=== PATIENT | male | born 1935 | race Caucasian/White ===

== ENCOUNTER 2017-05-15 23:39 | Observation (INO) | payer OTHER, BC ==
[~2017-05-15] VITALS: Ht 172.7 cm; Wt 82.5 kg
[2017-05-16] MEDS ORDERED: ASPIRIN 324 MG CHEW PO STA (00:03)
--- NOTE | 2017-05-16 00:04 | EMERGENCY ROOM VISIT NOTE ---
History Report prepared by Rajesh: Robert Jefferson Under the Supervision of: Dr. Cory Chi M.D. First contact with patient: 23:54 Chief Complaint: CHEST PAIN Stated Complaint: CHEST PAIN History of Present Illness The patient is an 82 year old male with a history of atrial fibrillation who presents to the Emergency Room with complaints of an episode of left-sided chest pain that occurred around an hour ago. He says that he was at the [facility] football game, and got excited and had around 15 to 20 minutes of dull left- sided chest pain. He says that the pain is now gone. The patient notes that his heart was racing and he felt weak during the episode. The patient has a history of a bypass and stent placement, and was last hospitalized for atrial fibrillation 2 years ago. He notes no history of heart attacks. He had a pacemaker placed 10 years ago. The patient says that his last chest pain episode before this one was "months ago". He states that he has not taken any medications for the pain today. He denies any loss of consciousness, shortness of breath, nausea, vomiting, abdominal pain, leg swelling, or leg pain. He takes Eliquis and Aspirin daily. He says that he was not drinking alcohol today. Source of History: patient, family Onset: Around an hour ago Position: chest (left) Quality: dull Timing: other (episode) Associated Symptoms: + weakness, No LOC, No SOB, No nausea, No vomiting, No abdominal pain Note: Associated symptoms: Heart was racing. Denies leg swelling or leg pain. Review of Systems See HPI for pertinent positives & negatives. A total of 10 systems reviewed and were otherwise negative. Past Medical & Surgical Medical Problems: (1) Afib (2) Pacemaker (3) Palpitations Family History Family history omitted secondary to patient's advanced age. Social History Smoking Status: Never Smoker Marital Status: Housing Status: lives with family Occupation Status: retired Current/Historical Medications Scheduled Apixaban (Eliquis), 5 MG PO BID Aspirin (Dameon Aspirin Ec Low Dose), 81 MG PO DAILY Carboxymethylcellulose Sodium (Refresh), 1 DROP OPB QPM Cholecalciferol (Vitamin D3), 2,000 UNITS PO DAILY Guaifenesin/Codeine (Robitussin-Ac Syrup), 10 ML PO QPM Rosuvastatin Calcium (Crestor), 5 MG PO DAILY Allergies Coded Allergies: No Known Allergies (Unverified , 05/16/17) Physical Exam Vital Signs Date Time Temp Pulse Resp B/P (MAP) Pulse Ox O2 Delivery O2 Flow Rate FiO2 05/16/17 02:39 82 18 05/16/17 02:09 79 19 05/16/17 01:09 73 17 126/80 05/16/17 00:39 73 20 126/80 96 Room Air 05/16/17 00:39 74 20 97 05/16/17 00:33 97 Room Air 05/16/17 00:31 126/80 05/16/17 00:09 74 16 05/16/17 00:00 81 05/15/17 23:42 36.6 63 20 138/82 97 Room Air Physical Exam GENERAL: Patient is elderly appearing and in no acute distress. HEENT: No acute trauma, normocephalic atraumatic, mucous membranes moist, no nasal congestion, no scleral icterus. NECK: No stridor, no adenopathy, no meningismus, trachea is midline. LUNGS: No dyspnea. Clear to auscultation and equal bilaterally. No wheeze, no rhonchi. CHEST: Pacemaker in left upper chest. HEART: Regular rate and rhythm. No murmurs, rubs, gallops appreciated. ABDOMEN: Soft, nontender, bowel sounds positive, no masses appreciated, no peritonitis. BACK: No midline tenderness, no CVA tenderness EXTREMITIES: Normal motion all extremities, no cyanosis, no edema. NEUROLOGIC: Alert and oriented, no acute motor or sensory deficits, no focal weakness, cranial nerves grossly intact. SKIN: No rash, no jaundice, no diaphoresis. Medical Decision & Procedures ER Provider Diagnostic Interpretation: X ray results are stated below per my interpretation and the radiologist's interpretation. 1-view chest x-ray: poor inspiratory effort, mildly enlarged heart, sternal wires, no infiltrate, no pneumothorax. Laboratory Results 05/15/17 23:55 Red Blood Count 4.50, Mean Corpuscular Volume 95.3, Mean Corpuscular Hemoglobin 32.0, Mean Corpuscular Hemoglobin Concent 33.6, Mean Platelet Volume 10.3, Neutrophils (%) (Auto) 58.4, Lymphocytes (%) (Auto) 26.0, Monocytes (%) (Auto) 13.6, Eosinophils (%) (Auto) 1.3, Basophils (%) (Auto) 0.5, Neutrophils # (Auto ) 4.85, Lymphocytes # (Auto) 2.16, Monocytes # (Auto) 1.13, Eosinophils # (Auto ) 0.11, Basophils # (Auto) 0.04 05/15/17 23:55 Test 05/15/17 23:55 White Blood Count 8.31 K/uL (4.8-10.8) Red Blood Count 4.50 M/uL (4.7-6.1) Hemoglobin 14.4 g/dL (14.0-18.0) Hematocrit 42.9 % (42-52) Mean Corpuscular Volume 95.3 fL (80-100) Mean Corpuscular Hemoglobin 32.0 pg (25-34) Mean Corpuscular Hemoglobin Concent 33.6 g/dl (32-36) Platelet Count 144 K/uL (130-400) Mean Platelet Volume 10.3 fL (7.4-10.4) Neutrophils (%) (Auto) 58.4 % Lymphocytes (%) (Auto) 26.0 % Monocytes (%) (Auto) 13.6 % Eosinophils (%) (Auto) 1.3 % Basophils (%) (Auto) 0.5 % Neutrophils # (Auto) 4.85 K/uL (1.4-6.5) Lymphocytes # (Auto) 2.16 K/uL (1.2-3.4) Monocytes # (Auto) 1.13 K/uL (0.11-0.59) Eosinophils # (Auto) 0.11 K/uL (0-0.5) Basophils # (Auto) 0.04 K/uL (0-0.2) RDW Standard Deviation 45.5 fL (36.4-46.3) RDW Coefficient of Variation 13.1 % (11.5-14.5) Immature Granulocyte % (Auto) 0.2 % Immature Granulocyte # (Auto) 0.02 K/uL (0.00-0.02) Anion Gap 5.0 mmol/L (3-11) Est Creatinine Clear Calc Drug Dose 54.1 ml/min Estimated GFR () 80.3 Estimated GFR (Non- 69.3 BUN/Creatinine Ratio 27.5 (10-20) Calcium Level 8.5 mg/dl (8.5-10.1) Magnesium Level 2.2 mg/dl (1.8-2.4) Total Creatine Kinase 61 U/L (39-308) Creatine Kinase MB 1.6 ng/ml (0.5-3.6) Creatine Kinase MB Ratio 2.6 (0-3.0) Troponin I 0.017 ng/ml (0-0.045) Laboratory results as reviewed by me. Medications Administered Medications (Trade) Dose Ordered Sig/Juliet Route Start Time Stop Time Status Last Admin Dose Admin Aspirin (Aspirin Chew) 324 mg NOW STAT PO 05/16/17 00:03 05/16/17 00:04 DC 05/16/17 00:32 324 MG Sodium Chloride 500 ml @ 999 mls/hr Q31M STAT IV 05/16/17 01:29 05/16/17 01:59 DC 05/16/17 01:29 999 MLS/HR ECG Indication: chest pain Rate (beats per minute): 82 Rhythm: other (paced rhythm) Findings: no acute ischemic change, no ectopy, other (QTC of 530) ED Course 2352: The patient was evaluated in room C10. A complete history and physical exam was performed. 0003: Ordered Aspirin Chew 324 mg PO. 0125: I reevaluated the patient and he has no further chest pain. The patient verbally expressed understanding and agreement of the treatment plan. The patient will be evaluated for further treatment. 0128: I discussed the patient with Dr. Mckee - [facility] excellence coach - he will evaluate the patient for further treatment. 0129: Ordered NSS 500 ml @ 999 mls/hr IV. Medical Decision Differential: Cardiac Ischemia (STEMI, NSTEMI, Unstable Angina, etc), Aortic Dissection, Arrhythmia, Pulmonary Embolism, Pneumonia, Pneumothorax, MSK, Infectious, Pericarditis/Myocarditis, Esophageal Rupture, Gastrointestinal, amongst other pathologies entertained. 82 yr old male arrives from football game after developed left chest pressure in setting of exertion and noted palpitations. Resolved here. EKG looks OK and trop negative. CXR clear. Suspect some dehydration with mild bun elevation. Otherwise work-up benign. Will need to come in for cardiac rule out. Already on Eliquis. Given Full dose ASA for cardioprotective. Medication Reconcilliation Current Medication List: was personally reviewed by me Blood Pressure Screening Patient's blood pressure: Elevated blood pressure Monitored by hospitalist. Consults Time Called: 012 Consulting Physician: Dr. Rylee NEVES excellence coach Returned Call: 0128 (in person) I discussed the patient with Dr. Rylee NEVES excellence coach - he will evaluate the patient for further treatment. Impression Primary Impression: Left sided chest pain Additional Impression: Dehydration Scribe Attestation The scribe's documentation has been prepared under my direction and personally reviewed by me in its entirety. I confirm that the note above accurately reflects all work, treatment, procedures, and medical decision making performed by me. Departure Information Dispostion Being Evaluated By Hospitalist Referrals No Doctor, Assigned (PCP) Patient Instructions [facility] Problem Qualifiers
[2017-05-16] MEDS ORDERED: APIX1TAB3 PO (00:18)
[2017-05-16] MEDS ORDERED: ROSU5TAB PO (00:19)
[2017-05-16] MEDS ORDERED: CHOL2000 PO (00:20)
[2017-05-16] MEDS ORDERED: CARB1SOL OPB (00:21)
[2017-05-16] MEDS ORDERED: ASPI1TAB2 PO (00:22)
[2017-05-16] MEDS ORDERED: GUAISYP4 PO (00:23)
[2017-05-16 00:47] LABS: BASO % 0.5 %; BASO ABS # 0.04 K/uL (0-0.2); EOS % 1.3 %; HEMATOCRIT 42.9 % (42-52); IG% 0.2 %; LYMPH ABS # 2.16 K/uL (1.2-3.4); MEAN CELL VOLUME 95.3 fL (80-100); MEAN CORPUSCULAR HGB CONC 33.6 g/dl (32-36); MEAN PLATELET VOLUME 10.3 fL (7.4-10.4); MONO % 13.6 %; NEUT % 58.4 %; PLATELET COUNT 144 K/uL (130-400); WHITE BLOOD COUNT 8.31 K/uL (4.8-10.8)
[2017-05-16 00:48] LABS: COMPLETE YES
[2017-05-16 01:02] LABS: BUN/CREATININE RATIO 27.5 (10-20); CALCIUM 8.5 mg/dl (8.5-10.1); MAGNESIUM 2.2 mg/dl (1.8-2.4)
[2017-05-16 01:07] LABS: CKMB/CK RATIO 2.6 (0-3.0)
[2017-05-16] MEDS ORDERED: SODIUM CHLORIDE 0.9% 500ML 500 ML IV STA (01:29)
[2017-05-16] MEDS ORDERED: MoRPHine SULFATE 2 MG/ML CARP IV PRN (03:00)
[2017-05-16] MEDS ORDERED: POLYETHYLENE (MIRALAX) 17 GM PACK PO PRN (03:00)
[2017-05-16] MEDS ORDERED: MAGNESIUM HYDROXIDE SUSP 30 ML UDC PO PRN (03:00)
[2017-05-16] MEDS ORDERED: ALUMINUM/MAGNESIUM/SIMETH (MAALOX MAX) 30 ML UDC PO PRN (03:00)
[2017-05-16] MEDS ORDERED: ACETAMINOPHEN 325 MG TAB PO PRN (03:00)
[2017-05-16] MEDS ORDERED: ONDANSETRON INJ 2 MG/ML 2 ML VIAL IV PRN (03:00)
[2017-05-16] MEDS ORDERED: NITROGLYCERIN 0.4 MG SL PER TAB CHARGE SL PRN (03:00)
--- NOTE | 2017-05-16 03:07 | History and Physical ---
History & Physical Date & Time of Service: May 16, 2017 at 02:56 Chief Complaint: Chest Pain Primary Care Physician: No Doctor, Assigned History of Present Illness Source: patient 82 year old male with a PMH of atrial fibrillation, stent placement and a pacemaker that presented with a feeling of fluttering in his chest, which was associated with some central chest discomfort It started during the 4th quarter of the [employer] game which he was attending. The fluttering in his chest would last for 20-30 seconds and occurred 4-5 times over a span of 15 minutes at which point he left the game and was brought to the hospital by his for further assessment. By the time he reached the ED he was no longer having chest pain. The patient denied having any numbness or tingling down his arm or into his neck. He did not have any light headedness, pre-syncope, shortness of breath or dizziness. In the ED he had a CXR which did not show any acute abnormalities. His EKG was unable to be assessed as he has a pacemaker placed. His troponin in the ED was 0.17. He received a 325mg dose of aspirin in the ED. He was admitted to the floors for observation Past Medical/Surgical History Medical Problems: (1) Afib Status: Resolved (2) Pacemaker Status: Chronic 3) CAD - cath/stent Family History No FH of HI or Afib Social History Smoking Status: Former Smoker Drug Use: none Marital Status: Occupational Status: retired Allergies Coded Allergies: No Known Allergies (Unverified , 05/16/17) Home Medications Scheduled Apixaban (Eliquis), 5 MG PO BID Aspirin (Dameon Aspirin Ec Low Dose), 81 MG PO DAILY Carboxymethylcellulose Sodium (Refresh), 1 DROP OPB QPM Cholecalciferol (Vitamin D3), 2,000 UNITS PO DAILY Guaifenesin/Codeine (Robitussin-Ac Syrup), 10 ML PO QPM Rosuvastatin Calcium (Crestor), 5 MG PO DAILY Review of Systems Constitutional: No fever, No chills, No sweats Respiratory: No cough, No sputum, No wheezing, No shortness of breath Cardiovascular: + chest pain, + palpitations, No edema Abdomen: No pain, No nausea, No vomiting, No diarrhea, No constipation Musculoskeletal: No joint pain, No muscle pain, No swelling, No calf pain Physical Exam Vital Signs Date Time Temp Pulse Resp B/P (MAP) Pulse Ox O2 Delivery O2 Flow Rate FiO2 05/16/17 00:39 73 20 126/80 96 Room Air 05/16/17 00:33 97 Room Air 05/16/17 00:00 81 05/15/17 23:42 36.6 63 20 138/82 97 Room Air General Appearance: WD/WN, no apparent distress ENT: hearing grossly normal, pharynx normal Neck: no JVD, no carotid bruits, trachea midline Respiratory/Chest: lungs clear, no respiratory distress, no accessory muscle use Cardiovascular: no edema, normal peripheral pulses, + systolic murmur (at the RUSB), + irregularly irregular Abdomen/GI: normal bowel sounds, non tender, soft Extremities/Musculoskelatal: no calf tenderness, no pedal edema, normal range of motion Neurologic/Psych: alert, normal mood/affect, oriented x 3 Skin: normal color, warm/dry, no rash Diagnostics Laboratory Results Results Past 24 Hours Test 05/15/17 23:55 Range/Units White Blood Count 8.31 4.8-10.8 K/uL Red Blood Count 4.50 4.7-6.1 M/uL Hemoglobin 14.4 14.0-18.0 g/dL Hematocrit 42.9 42-52 % Mean Corpuscular Volume 95.3 80-100 fL Mean Corpuscular Hemoglobin 32.0 25-34 pg Mean Corpuscular Hemoglobin Concent 33.6 32-36 g/dl Platelet Count 144 130-400 K/uL Mean Platelet Volume 10.3 7.4-10.4 fL Neutrophils (%) (Auto) 58.4 % Lymphocytes (%) (Auto) 26.0 % Monocytes (%) (Auto) 13.6 % Eosinophils (%) (Auto) 1.3 % Basophils (%) (Auto) 0.5 % Neutrophils # (Auto) 4.85 1.4-6.5 K/uL Lymphocytes # (Auto) 2.16 1.2-3.4 K/uL Monocytes # (Auto) 1.13 0.11-0.59 K/uL Eosinophils # (Auto) 0.11 0-0.5 K/uL Basophils # (Auto) 0.04 0-0.2 K/uL RDW Standard Deviation 45.5 36.4-46.3 fL RDW Coefficient of Variation 13.1 11.5-14.5 % Immature Granulocyte % (Auto) 0.2 % Immature Granulocyte # (Auto) 0.02 0.00-0.02 K/uL Sodium Level 139 136-145 mmol/L Potassium Level 4.0 3.5-5.1 mmol/L Chloride Level 106 98-107 mmol/L Carbon Dioxide Level 28 21-32 mmol/L Anion Gap 5.0 3-11 mmol/L Blood Urea Nitrogen 27 7-18 mg/dl Creatinine 1.00 0.60-1.40 mg/dl Est Creatinine Clear Calc Drug Dose 54.1 ml/min Estimated GFR () 80.3 Estimated GFR (Non- 69.3 BUN/Creatinine Ratio 27.5 10-20 Random Glucose 100 70-99 mg/dl Calcium Level 8.5 8.5-10.1 mg/dl Magnesium Level 2.2 1.8-2.4 mg/dl Total Creatine Kinase 61 39-308 U/L Creatine Kinase MB 1.6 0.5-3.6 ng/ml Creatine Kinase MB Ratio 2.6 0-3.0 Troponin I 0.017 0-0.045 ng/ml CXR normal other (unable to interpret) Impression Assessment and Plan 82 year old male with PMH of afib, s/p pacemaker and s/p stent that presented with fluttering in his chest and chest discomfort Chest discomfort and fluttering - Serial troponins - Admit to telemetry - ASA in the AM - Continue crestor and eliquis DVT prophylaxis - Abad Murillo Resident Physician Supervision Note: I was present with Dr. Mccartney during the history and exam. I discussed the case with the resident and agree with the findings and plan as documented in the note. Any exceptions or clarifications are listed here: 82 y/o M CAD, AF, pacer - visiting from [place] for football game - developed L CP and feeling of fluttering in chest lasting approx 15 min OE AAO x 2 S1,2 R CTAB NT, ND, BS+ No CCE P: Pts EKG is paced and nondiagnostic - trop is marginal - we will monitor on telemetry and obtain serial troponins If + would need to determine of this was due to prolonged fib and a demand mismatch or due to CAD He did have a brief episode of tachycardia - lasting a few seconds - while I was in the room. He did not notice this - there were no concomitant symptoms. Above discussed with pt , resident , ER attending Documented By: Edgardo Mckee VTE Prophylaxis VTE Risk Assessment Done? Y/N: Yes Risk Level: Low
[2017-05-16 03:58] VITALS: BP 156/95; PULSE 72; TEMP 36.3; O2SAT 99; Ht 172.7 cm; Wt 82.5 kg
--- NOTE | 2017-05-16 06:02 | DIAGNOSTIC IMAGING REPORT ---
CHEST ONE VIEW PORTABLE CLINICAL HISTORY: 82 years-old Male presenting with Chest Pain and discomfort. TECHNIQUE: Portable upright AP view of the chest was obtained. COMPARISON: None. FINDINGS: Left-sided pacer with leads to the right atrium and right ventricular apex. Median sternotomy wires with multiple wires. Atherosclerosis of the aortic arch. Cardiac silhouette normal in size allowing for mildly low lung volumes. Elevation of the left hemidiaphragm with minimal left basilar opacity. No large effusion or pneumothorax. Right lung and pleural space clear. Irregularity of the right humeral neck. Upper abdomen normal. IMPRESSION: 1. Elevation of the left hemidiaphragm with suspected minimal left basilar atelectasis. 2. Irregularity of the right humeral neck. Age-indeterminate fracture cannot be excluded. Electronically signed by: Christian Kirby M.D. 05/16/2017 6:01 AM Dictated Date/Time: 05/16/2017 5:58 AM
[2017-05-16 08:00] VITALS: O2SAT 99
[2017-05-16] MEDS ORDERED: PNEUMOCOCCAL POLYSACCHARIDES 25 MCG/0.5 ML VIAL/SYR IM. ONE (08:00)
[2017-05-16] MEDS ORDERED: PNEUMOCOCCAL ADMINISTRATION CHARGE ONE (08:00)
[2017-05-16 08:02] VITALS: BP 139/82; PULSE 83; TEMP 36.5; O2SAT 98
--- NOTE | 2017-05-16 08:30 | Family Medicine Progress Note ---
Progress Note Date of Service May 16, 2017. Subjective SEE DISCHARGE NOTE Objective Vital Signs Date Time Temp Pulse Resp B/P (MAP) Pulse Ox O2 Delivery O2 Flow Rate FiO2 05/16/17 08:02 36.5 83 20 139/82 (101) 98 05/16/17 04:00 Room Air 05/16/17 03:58 36.3 72 16 156/95 99 Room Air 05/16/17 03:17 75 18 160/78 96 Room Air 05/16/17 02:39 82 18 05/16/17 02:09 79 19 05/16/17 01:09 73 17 126/80 05/16/17 00:39 73 20 126/80 96 Room Air 05/16/17 00:39 74 20 97 05/16/17 00:33 97 Room Air 05/16/17 00:31 126/80 05/16/17 00:09 74 16 05/16/17 00:00 81 05/15/17 23:42 36.6 63 20 138/82 97 Room Air Assessment and Plan 82 year old male with PMH of afib, s/p pacemaker and s/p stent that presented with fluttering in his chest and chest discomfort Chest discomfort and fluttering - Serial troponins - Admit to telemetry - ASA in the AM A.fib - Continue Eloquis HLD - Continue Crestor DVT prophylaxis - Abad Murillo Resident Tracking Resident Involvement: Resident Care Provided Care Provided: Adult Hospital Medicine History Resident Physician Supervision Note: I was present with Dr. Sanchez during the history and exam. I discussed the case with the resident and agree with the findings and plan as documented in the note. Any exceptions or clarifications are listed here. Pt seen and examined at bedside. No acute events since admission. Chest pain resolved prior to presentation at [facility] and has not recurred. No history of same. May have been heartburn (patient was eating atypical foods at [employer] game). Reports no lightheadedness, palpitations, SOB, nausea, diaphoresis, sensory changes. General Appearance: WD/WN, no apparent distress Respiratory: chest non-tender, lungs clear, normal breath sounds, no respiratory distress Cardiovascular: normal peripheral pulses, regular rate, rhythm, no edema, no murmur Gastrointestinal: normal bowel sounds, non tender, soft, no organomegaly Assessment/Plan 82 y/o male h/o atrial fibrillation and implanted pacemaker presents with episode of chest pain Chest pain - troponins negative x 3, asymptomatic - continue ASA, statin, eliquis. Nitro PRN provided. Discharge to close outpatient follow up Atrial fibrillation - continue eliquis
[2017-05-16] MEDS ORDERED: APIXABAN 2.5 MG TAB PO SCH (09:00)
[2017-05-16] MEDS ORDERED: ASPIRIN 81 MG ECTAB PO SCH (09:00)
[2017-05-16] MEDS ORDERED: ROSUVASTATIN CALCIUM 10 MG TAB PO SCH (09:00)
[2017-05-16 09:50] LABS: CKMB/CK RATIO 3.1 (0-3.0)
[2017-05-16 12:00] VITALS: BP 134/82; PULSE 75; TEMP 36.8; O2SAT 96; O2SAT 99
[2017-05-16] MEDS ORDERED: NTRSLP4 SL ×2 (12:45→13:47)
--- NOTE | 2017-05-16 13:48 | Discharge Instructions ---
Discharge Instructions Date of Service May 16, 2017. Admission Reason for Admission: Palpitations Discharge Discharge Diagnosis / Problem: Chest pain Discharge Goals Goal(s): Decrease discomfort, Diagnostic testing Activity Recommendations Activity Limitations: resume your previous activity . Instructions / Follow-Up Instructions / Follow-Up You were seen in hospital to assess for an episode of chest discomfort. Since coming to hospital, you have been asymptomatic and three sets of troponin (protein leaked when there is damage to heart muscle) have been negative. It is advisable that upon discharge, you continue all your home medications and follow up with your winterizer in the next week. Additionally, nitro tablets have been prescribed to you for use in future possible episodes of chest pain. Thank you for allowing us to participate in your care. Current Hospital Diet Patient's current hospital diet: Regular Diet Discharge Diet Recommended Diet: AHA Diet (Heart Healthy) Pending Studies Studies pending at discharge: no Medical Emergencies . Who to Call and When: Medical Emergencies: If at any time you feel your situation is an emergency, please call 911 immediately. . Non-Emergent Contact Non-Emergency issues call your: Primary Care Provider, Safekeeping Clerk . . "Provider Documentation" section prepared by Julissa Sanchez. . VTE Core Measure Inpt VTE Proph given/why not?: Renu Murillo Resident Tracking Resident Involvement: Resident Care Provided Care Provided: Adult Hospital Medicine
[2017-05-16 14:34] VITALS: BP 134/82; PULSE 75; TEMP 36.8; O2SAT 96
--- NOTE | 2017-05-16 18:43 | Discharge Summary ---
Discharge Summary Date of Service May 16, 2017. Discharge Summary Admission Date: May 16, 2017 at 02:55 Discharge Date: May 16, 2017 Discharge Disposition: Home Principal Diagnosis: Chest pain Medication Reconciliation New Medications: Nitroglycerin (Nitrostat) 0.4 Mg/1 Tab Subl 0.4 MG SL UD PRN for Chest Pain, #28 TAB Continued Medications: Apixaban (Eliquis) 5 Mg Tab 5 MG PO BID, TAB Aspirin (Dameon Aspirin Ec Low Dose) 81 Mg Tab 81 MG PO DAILY, TAB Carboxymethylcellulose Sodium (Refresh) 1 % Jairo 1 DROP OPB QPM Cholecalciferol (Vitamin D3) 2,000 Unit Cap 2000 UNITS PO DAILY, CAP Guaifenesin/Codeine (Robitussin-Ac Syrup) Syrp 10 ML PO QPM, ML Rosuvastatin Calcium (Crestor) 5 Mg Tab 5 MG PO DAILY, TAB Discharge Exam Patient currently well. He was admitted for chest pain rule out. His chest pain had resolved prior to arrival to the hospital, and there has been no reoccurrence of chest symptoms since arrival. He denies shortness of breath, palpitations, headaches, nausea, diaphoresis, any numbness or tingling anywhere. He has not had any recurrence of symptoms with ambulation either. He is tolerating diet. He is keen for home. ROS unremarkable except as noted above. Physical Exam: General Appearance: WD/WN, no apparent distress Eyes: normal inspection ENT: hearing grossly normal Neck: supple, no adenopathy, no JVD Respiratory/Chest: lungs clear, normal breath sounds, no respiratory distress, no accessory muscle use Cardiovascular: regular rate, rhythm, no murmur, normal peripheral pulses Abdomen / GI: normal bowel sounds, non tender, soft Extremities: no calf tenderness, no pedal edema Neurologic/Psychiatric: alert, normal mood/affect, oriented x 3 Skin: normal color, warm/dry, no rash Hospital Course 82 year old male with PMHx of afib, s/p pacemaker and s/p stent insertion presented with fluttering in his chest and chest discomfort Chest discomfort and fluttering - No recurrence of symptoms since original sensation prior to arrival - EKG findings unremarkable. Serial troponins all negative - Advised to continue home medications. Prescription provided for SL nitroglycerin as needed for chest pain - Follow-up with application technician recommended in the next week. Mark.fib - Continue Eliquis HLD - Continue Crestor Total Time Spent: Less than 30 minutes This includes examination of the patient, discharge planning, medication reconciliation, and communication with other providers. Discharge Instructions Please refer to the electronic Patient Visit Report (Discharge Instructions) for additional information. Resident Tracking Resident Involvement: Resident Care Provided Care Provided: Adult [facility] Medicine
[2017-05-16] MEDS ORDERED: GUAIFENESIN/CODEINE 200MG/20MG 10ML UDC PO SCH (21:00)
== END 2017-05-16 14:45 | disposition home or self-care (01) ==
LOC: C.EDB 23:41 → C.MED 05-16 02:55 → ENRESERV 05-16 03:01
PROVIDERS: ADMIT Internal Medicine; ATTEND Internal Medicine
DX: R07.9 Chest pain, unspecified (principal); E86.0 Dehydration; I48.91 Unspecified atrial fibrillation; I25.10 Atherosclerotic heart disease of native coronary artery without angina pectoris; E78.5 Hyperlipidemia, unspecified; Z95.0 Presence of cardiac pacemaker; Z95.5 Presence of coronary angioplasty implant and graft; Z87.891 Personal history of nicotine dependence; Z79.82 Long term (current) use of aspirin; Z79.899 Other long term (current) drug therapy